=== PATIENT | male | born 1965 | race African-American/Black ===

== ENCOUNTER 2020-07-30 14:08 | Emergency (ER) | payer MEDICARE ==
[~2020-07-30 14:08] MED LIST: AMLODIPINE BESY10 MG PO; ASPIRIN EC81 MG PO; DULERA 200 MCG8.8 GM PO; FLEXERIL10 MG PO; GLIPIZIDE 5 MG (5 MG PO; HUMALOG 75100 UNIT/M SC; LANTUS **100 UNITS/ SC; LIPITOR10 MG PO; LISINOPRIL-HCT1 EAC2 PO; METOPROLOL SUCC50 MG PO; OMEPRAZOLE 20MG20 MG PO; VENTOLIN HFA IN18 GM PO
[2020-07-30 15:09] LABS: BILIRUBIN NEGATIVE (NEGATIVE); BLOOD TRACE-INTACT Ery/uL (NEGATIVE); COLOR YELLOW (YELLOW); GLUCOSE (U) 3+ mg/dL (NORMAL); LEUKOCYTES NEGATIVE Leu/uL (NEGATIVE); NITRITE NEGATIVE (NEGATIVE); PROTEIN 2+ mg/dL (NEGATIVE); SPECIFIC GRAVITY 1.015 (1.001-1.030); UROBILINOGEN 0.2 mg/dL (0.2-1.0)
[2020-07-30 15:10] LABS: CLARITY SLIGHTLY HAZY (CLEAR)
[2020-07-30 15:18] LABS: BACTERIA TRACE
[2020-07-30 15:27] LABS: BASOPHIL 0.1 % (0-2); EOSINOPHIL 0.4 % (0-5); HCT 29.2 % (42.0-52.0); HGB 9.6 g/dl (13.2-18.0); LYMPHOCYTE 2.9 % (15-48); MCH 28.3 pg (25.0-31.0); MCHC 32.9 g/dL (32.0-36.0); MCV 86.1 fL (78.0-100.0); MONOCYTE 8.3 % (0-12); MPV 11.3 fL (6.0-9.5); NEUTROPHIL 87.3 % (41-80); NRBC 0; PLT 255 K/uL (150-400); RBC 3.39 M/uL (4.70-6.00); RDW 13.2 % (11.5-14.0); WBC 11.2 K/uL (4.0-10.5)
[2020-07-30 16:58] LABS: ALBUMIN 3.4 g/dL (3.4-5.0); ALKALINE PHOSHATASE 254 U/L (46-116); ALT 14 U/L (16-63); AST 10 U/L (15-37); BILIRUBIN - TOTAL 0.3 mg/dL (0.2-1.0); CHLORIDE 91 mmol/L (98-107); CO2 (BICARBONATE) 18 mmol/L (21-32); CREATININE 7.28 mg/dL (0.67-1.17); GLOBULIN (CALCULATION) 4.4 g/dL; POTASSIUM 5.2 mmol/L (3.5-5.1); TOTAL PROTEIN 7.8 g/dL (6.4-8.2)
[2020-07-30 16:59] LABS: BUN 87 mg/dL (7-18); GLUCOSE >750 mg/dL (74-106)
[2020-07-30 17:29] LABS: AMPHETAMINES NEGATIVE (NEGATIVE); BARBITURATES NEGATIVE (NEGATIVE); ECSTASY (MDMA) NEGATIVE (NEGATIVE); MARIJUANA (THC) NEGATIVE (NEGATIVE); METHADONE NEGATIVE (NEGATIVE); OPIATES NEGATIVE (NEGATIVE)
[2020-07-30 17:30] LABS: OXYCODONE POSITIVE (NEGATIVE)
[2020-07-30 20:11] LABS: CREATININE 7.24 mg/dL (0.67-1.17); POTASSIUM 4.2 mmol/L (3.5-5.1)
== END 2020-07-30 22:28 | disposition other institution (70) ==
LOC: FER 14:08
PROVIDERS: Emergency Medicine
DX: E11.10 Type 2 diabetes mellitus with ketoacidosis without coma (principal); F41.9 Anxiety disorder, unspecified; I12.9 Hypertensive chronic kidney disease with stage 1 through stage 4 chronic kidney disease, or unspecified chronic kidney disease; E11.22 Type 2 diabetes mellitus with diabetic chronic kidney disease; N18.9 Chronic kidney disease, unspecified; F17.210 Nicotine dependence, cigarettes, uncomplicated; Z90.49 Acquired absence of other specified parts of digestive tract
CPT/HCPCS: 36415; 36600; 70450; 71045; 72125; 80048; 80053; 80305; 81001; 82550; 82803; 83605; 84484; 85025; 87040; 93005; G0480; J7030

== ENCOUNTER → 2020-09-09 | Day surgery (SDC) | payer MEDICARE ==
[~2020-09-09] MED LIST changes: +NORCO 5-325 TA1 EACH PO
[2020-09-09 11:16] LABS: HGB 9.7 g/dl (13.2-18.0); MCH 29.8 pg (25.0-31.0); MCHC 31.3 g/dL (32.0-36.0); MCV 95.1 fL (78.0-100.0); MPV 10.7 fL (6.0-9.5); RBC 3.26 M/uL (4.70-6.00); WBC 10.9 K/uL (4.0-10.5)
[2020-09-09 11:57] LABS: ALBUMIN 3.5 g/dL (3.4-5.0); BILIRUBIN - TOTAL 0.3 mg/dL (0.2-1.0); CREATININE 7.38 mg/dL (0.67-1.17); GLOBULIN (CALCULATION) 4.9 g/dL; POTASSIUM 5.1 mmol/L (3.5-5.1); TOTAL PROTEIN 8.4 g/dL (6.4-8.2)
== END | disposition home or self-care (01) ==
LOC: FAS 10:39
PROVIDERS: Surgery
DX: K29.80 Duodenitis without bleeding (principal); K31.9 Disease of stomach and duodenum, unspecified; K29.70 Gastritis, unspecified, without bleeding; K21.9 Gastro-esophageal reflux disease without esophagitis; I12.0 Hypertensive chronic kidney disease with stage 5 chronic kidney disease or end stage renal disease; E11.22 Type 2 diabetes mellitus with diabetic chronic kidney disease; N18.5 Chronic kidney disease, stage 5; D63.1 Anemia in chronic kidney disease; E11.42 Type 2 diabetes mellitus with diabetic polyneuropathy; E11.3299 Type 2 diabetes mellitus with mild nonproliferative diabetic retinopathy without macular edema, unspecified eye; F41.9 Anxiety disorder, unspecified; M19.90 Unspecified osteoarthritis, unspecified site; J44.9 Chronic obstructive pulmonary disease, unspecified; F32.9 Major depressive disorder, single episode, unspecified; M10.9 Gout, unspecified; E78.00 Pure hypercholesterolemia, unspecified; K58.9 Irritable bowel syndrome, unspecified; M06.9 Rheumatoid arthritis, unspecified; G47.30 Sleep apnea, unspecified; Z87.891 Personal history of nicotine dependence; Z79.82 Long term (current) use of aspirin; Z79.4 Long term (current) use of insulin; Z79.899 Other long term (current) drug therapy
CPT/HCPCS: 36415; 80053; 88305; 94640; J2704; J7120

== ENCOUNTER 2020-10-22 09:27 | Emergency (ER) | payer MEDICARE ==
[~2020-10-22 09:27] MED LIST changes: -NORCO 5-325 TA1 EACH PO
[2020-10-22 10:14] LABS: BASOPHIL 0.4 % (0-2); EOSINOPHIL 2.6 % (0-5); HCT 32.8 % (42.0-52.0); HGB 10.5 g/dl (13.2-18.0); LYMPHOCYTE 8.6 % (15-48); MCH 30.5 pg (25.0-31.0); MCV 95.3 fL (78.0-100.0); MONOCYTE 10.9 % (0-12); MPV 10.4 fL (6.0-9.5); NEUTROPHIL 77.2 % (41-80); NRBC 0; PLT 274 K/uL (150-400); RBC 3.44 M/uL (4.70-6.00); WBC 9.4 K/uL (4.0-10.5)
[2020-10-22 10:46] LABS: CREATININE 7.02 mg/dL (0.67-1.17); POTASSIUM 5.2 mmol/L (3.5-5.1)
[2020-10-22 10:47] LABS: ALBUMIN 3.6 g/dL (3.4-5.0); BILIRUBIN - TOTAL 0.2 mg/dL (0.2-1.0); TOTAL PROTEIN 8.6 g/dL (6.4-8.2)
[2020-10-22 12:34] LABS: BILIRUBIN NEGATIVE (NEGATIVE); BLOOD NEGATIVE Ery/uL (NEGATIVE); CLARITY CLEAR (CLEAR); COLOR YELLOW (YELLOW); GLUCOSE (U) TRACE mg/dL (NORMAL); LEUKOCYTES NEGATIVE Leu/uL (NEGATIVE); NITRITE NEGATIVE (NEGATIVE); PROTEIN 3+ mg/dL (NEGATIVE); SPECIFIC GRAVITY 1.015 (1.001-1.030); UROBILINOGEN 0.2 mg/dL (0.2-1.0)
[2020-10-22 12:37] LABS: AMPHETAMINES NEGATIVE (NEGATIVE); BARBITURATES NEGATIVE (NEGATIVE); ECSTASY (MDMA) NEGATIVE (NEGATIVE); MARIJUANA (THC) NEGATIVE (NEGATIVE); METHADONE NEGATIVE (NEGATIVE); OPIATES NEGATIVE (NEGATIVE)
[2020-10-22 12:38] LABS: OXYCODONE POSITIVE (NEGATIVE)
[2020-10-22 12:40] LABS: URINARY RBC RARE
[2020-10-22 14:33] LABS: CREATININE 6.84 mg/dL (0.67-1.17)
[2020-10-22 14:34] LABS: POTASSIUM 5.5 mmol/L (3.5-5.1)
== END 2020-10-22 17:30 | disposition left against medical advice (07) ==
LOC: FER 09:27
PROVIDERS: Emergency Medicine
DX: E11.649 Type 2 diabetes mellitus with hypoglycemia without coma (principal); E87.5 Hyperkalemia; R91.1 Solitary pulmonary nodule; I12.0 Hypertensive chronic kidney disease with stage 5 chronic kidney disease or end stage renal disease; E11.22 Type 2 diabetes mellitus with diabetic chronic kidney disease; N18.6 End stage renal disease; J44.9 Chronic obstructive pulmonary disease, unspecified; F17.210 Nicotine dependence, cigarettes, uncomplicated; Z53.8 Procedure and treatment not carried out for other reasons
CPT/HCPCS: 36415; 71045; 80048; 80053; 80305; 81001; 83690; 84484; 85025; 93005; J7040

== ENCOUNTER 2021-02-02 09:07 | Emergency (ER) | payer MEDICARE ==
[2021-02-02] MEDS ORDERED: NORCO 5-325 TA1 EACH PO (11:15)
== END 2021-02-02 11:40 | disposition home or self-care (01) ==
LOC: FER 09:07
DX: S82.842A Displaced bimalleolar fracture of left lower leg, initial encounter for closed fracture (principal); I10 Essential (primary) hypertension; J44.9 Chronic obstructive pulmonary disease, unspecified; E11.9 Type 2 diabetes mellitus without complications; F17.200 Nicotine dependence, unspecified, uncomplicated; Z20.822 Contact with and (suspected) exposure to COVID-19; W01.0XXA Fall on same level from slipping, tripping and stumbling without subsequent striking against object, initial encounter; Y93.89 Activity, other specified; Y92.009 Unspecified place in unspecified non-institutional (private) residence as the place of occurrence of the external cause
CPT/HCPCS: 73590; 73600; 73610; 96374; 96375; J2270; J2405; U0002

== ENCOUNTER → 2021-02-03 | Day surgery (SDC) | payer MEDICARE ==
[~2021-02-03] VITALS: Ht 157.5 cm; Wt 86.2 kg
[~2021-02-03] MED LIST changes: +NORCO 5-325 TA1 EACH PO
[2021-02-03 14:46] LABS: HCT 28.6 % (42.0-52.0); MCHC 31.5 g/dL (32.0-36.0); MCV 95.3 fL (78.0-100.0); MPV 9.7 fL (6.0-9.5); RDW 13.2 % (11.5-14.0); WBC 9.1 K/uL (4.0-10.5)
[2021-02-03 15:14] LABS: ALBUMIN 3.4 g/dL (3.4-5.0); BILIRUBIN - TOTAL 0.3 mg/dL (0.2-1.0); CREATININE 10.05 mg/dL (0.67-1.17); GLOBULIN (CALCULATION) 4.7 g/dL; POTASSIUM 5.3 mmol/L (3.5-5.1); TOTAL PROTEIN 8.1 g/dL (6.4-8.2)
== END | disposition home or self-care (01) ==
LOC: FAS 13:42
PROVIDERS: Orthopaedic Surgery
DX: S82.841A Displaced bimalleolar fracture of right lower leg, initial encounter for closed fracture (principal); I12.9 Hypertensive chronic kidney disease with stage 1 through stage 4 chronic kidney disease, or unspecified chronic kidney disease; E11.22 Type 2 diabetes mellitus with diabetic chronic kidney disease; N18.4 Chronic kidney disease, stage 4 (severe); J43.9 Emphysema, unspecified; K21.9 Gastro-esophageal reflux disease without esophagitis
CPT/HCPCS: 36415; 73600; 76000; 80053; C1713; C1769; J0690; J2250; J2704; J2795; J3010; J7030; J7120

== ENCOUNTER 2021-02-07 03:36 | Emergency (ER) | payer MEDICARE ==
[2021-02-07 05:16] LABS: HCT 24.6 % (42.0-52.0); HGB 7.7 g/dL (13.2-18.0)
[2021-02-07 05:45] LABS: INR 0.99 (0.9-1.2); PROTHROMBIN TIME 12.5 SECONDS (11.8-13.4); PTT 36.2 SECONDS (24.4-34.7)
[2021-02-07] MEDS ORDERED: PERCOCET 5-3251 EACH PO (10:22)
== END 2021-02-07 11:10 | disposition home or self-care (01) ==
LOC: FER 03:36
PROVIDERS: Emergency Medicine Emergency Medical Services
DX: L76.22 Postprocedural hemorrhage of skin and subcutaneous tissue following other procedure (principal); M25.571 Pain in right ankle and joints of right foot; E11.9 Type 2 diabetes mellitus without complications; I10 Essential (primary) hypertension; F17.210 Nicotine dependence, cigarettes, uncomplicated; Y83.8 Other surgical procedures as the cause of abnormal reaction of the patient, or of later complication, without mention of misadventure at the time of the procedure
CPT/HCPCS: 36415; 85014; 85018; 85610; 85730; 99283; J1170

== ENCOUNTER 2021-02-12 17:43 | Emergency (ER) | payer MEDICARE ==
[~2021-02-12] VITALS: Ht 177.8 cm; Wt 82.6 kg
[~2021-02-12 17:43] MED LIST changes: +PERCOCET 5-3251 EACH PO
[2021-02-12 20:17] LABS: BASOPHIL 0.3 % (0-2); EOSINOPHIL 7.4 % (0-5); HCT 21.9 % (42.0-52.0); LYMPHOCYTE 15.4 % (15-48); MCH 30.5 pg (25.0-31.0); MCHC 31.5 g/dL (32.0-36.0); MCV 96.9 fL (78.0-100.0); MONOCYTE 13.4 % (0-12); MPV 9.6 fL (6.0-9.5); NEUTROPHIL 62.4 % (41-80); NRBC 0; PLT 384 K/uL (150-400); RBC 2.26 M/uL (4.70-6.00); RDW 13.5 % (11.5-14.0)
[2021-02-12 20:21] LABS: HGB 6.9 g/dl (13.2-18.0)
[2021-02-12 20:47] LABS: CREATININE 9.28 mg/dL (0.67-1.17)
[2021-02-12 20:50] LABS: POTASSIUM 5.8 mmol/L (3.5-5.1)
[2021-02-12 21:11] LABS: LACTIC ACID 0.7 mmol/L (0.4-1.9)
[2021-02-13 08:13] LABS: HCT 21.8 % (42.0-52.0); HGB 6.7 g/dL (13.2-18.0)
[2021-02-13 08:38] LABS: CREATININE 9.38 mg/dL (0.67-1.17); POTASSIUM 5.5 mmol/L (3.5-5.1)
== END 2021-02-13 20:45 | disposition other institution (70) ==
LOC: FER 17:43
PROVIDERS: Emergency Medicine Emergency Medical Services; Nurse Practitioner Family
DX: S90.821A Blister (nonthermal), right foot, initial encounter (principal); I12.0 Hypertensive chronic kidney disease with stage 5 chronic kidney disease or end stage renal disease; E11.22 Type 2 diabetes mellitus with diabetic chronic kidney disease; E87.5 Hyperkalemia; N18.5 Chronic kidney disease, stage 5; D64.9 Anemia, unspecified; Z20.822 Contact with and (suspected) exposure to COVID-19; J44.9 Chronic obstructive pulmonary disease, unspecified; Z87.891 Personal history of nicotine dependence; Z85.038 Personal history of other malignant neoplasm of large intestine; X58.XXXA Exposure to other specified factors, initial encounter
CPT/HCPCS: 36415; 36430; 80048; 83605; 85014; 85018; 85025; 86850; 86900; 86901; 86922; 87040; 96374; J3490; P9016; U0002

== ENCOUNTER 2021-07-19 12:52 | Emergency (ER) | payer MEDICARE ==
[2021-07-19 14:07] LABS: BASOPHIL 0.2 % (0-2); EOSINOPHIL 0.6 % (0-5); HCT 37.9 % (42.0-52.0); HGB 12.1 g/dl (13.2-18.0); LYMPHOCYTE 7.5 % (15-48); MCHC 31.9 g/dL (32.0-36.0); MONOCYTE 10.8 % (0-12); MPV 10.9 fL (6.0-9.5); NEUTROPHIL 80.3 % (41-80); NRBC 0; PLT 303 K/uL (150-400); RBC 4.03 M/uL (4.70-6.00); RDW 13.9 % (11.5-14.0); WBC 12.7 K/uL (4.0-10.5)
[2021-07-19 14:13] LABS: INR 1.03 (0.9-1.2); PROTHROMBIN TIME 12.9 SECONDS (11.8-13.4); PTT 31.9 SECONDS (24.4-34.7)
[2021-07-19 14:26] LABS: LACTIC ACID 0.8 mmol/L (0.4-1.9)
[2021-07-19 14:47] LABS: BILIRUBIN - TOTAL 0.4 mg/dL (0.2-1.0); BUN/CREAT RATIO (CALC) 8.1 RATIO; CREATININE 7.02 mg/dL (0.67-1.17); GLOBULIN (CALCULATION) 4.6 g/dL; POTASSIUM 4.8 mmol/L (3.5-5.1); TOTAL PROTEIN 7.6 g/dL (6.4-8.2)
== END 2021-07-19 21:30 | disposition other institution (70) ==
LOC: FER 12:52
PROVIDERS: Emergency Medicine
DX: U07.1 COVID-19 (principal); G92.9 Unspecified toxic encephalopathy; I12.0 Hypertensive chronic kidney disease with stage 5 chronic kidney disease or end stage renal disease; N18.6 End stage renal disease; Z99.2 Dependence on renal dialysis
CPT/HCPCS: 36415; 36600; 70450; 71250; 80053; 82140; 82803; 83605; 83615; 83690; 83735; 84145; 84484; 85025; 85610; 85730; 87040; 93005; J2543; U0002

== ENCOUNTER 2021-12-31 14:20 | Emergency (ER) | payer MEDICARE, OTHER ==
[2021-12-31 17:29] LABS: CORONAVIRUS 2019 SARS-COV-2 NEGATIVE (NEGATIVE); INFLUENZA A NAA NEGATIVE (NEGATIVE)
[2021-12-31 18:09] LABS: BASOPHIL 0.3 % (0-2); EOSINOPHIL 0.9 % (0-5); HCT 30.5 % (42.0-52.0); HGB 9.8 g/dl (13.2-18.0); LYMPHOCYTE 17.9 % (15-48); MCH 31.3 pg (25.0-31.0); MCHC 32.1 g/dL (32.0-36.0); MCV 97.4 fL (78.0-100.0); MPV 9.7 fL (6.0-9.5); NEUTROPHIL 52.4 % (41-80); NRBC 0; PLT 155 K/uL (150-400); RBC 3.13 M/uL (4.70-6.00); RDW 15.9 % (11.5-14.0); WBC 3.4 K/uL (4.0-10.5)
[2021-12-31 18:11] LABS: MONOCYTE 27.9 % (0-12)
[2021-12-31 18:30] LABS: ALBUMIN 3.1 g/dL (3.4-5.0); BILIRUBIN - TOTAL 0.4 mg/dL (0.2-1.0); BUN/CREAT RATIO (CALC) 6.5 RATIO; CREATININE 7.07 mg/dL (0.67-1.17); GLOBULIN (CALCULATION) 3.8 g/dL; POTASSIUM 6.4 mmol/L (3.5-5.1); TOTAL PROTEIN 6.9 g/dL (6.4-8.2)
== END 2021-12-31 20:48 | disposition home or self-care (01) ==
LOC: FER 14:20
PROVIDERS: Emergency Medicine
DX: E11.649 Type 2 diabetes mellitus with hypoglycemia without coma (principal); J44.9 Chronic obstructive pulmonary disease, unspecified; I12.9 Hypertensive chronic kidney disease with stage 1 through stage 4 chronic kidney disease, or unspecified chronic kidney disease; E11.22 Type 2 diabetes mellitus with diabetic chronic kidney disease; N18.9 Chronic kidney disease, unspecified; F17.210 Nicotine dependence, cigarettes, uncomplicated; Z20.822 Contact with and (suspected) exposure to COVID-19; Z79.4 Long term (current) use of insulin
CPT/HCPCS: 36415; 80053; 83036; 85025; J1642; U0002